=== PATIENT | female | born 1975 | race Two or more races ===

== ENCOUNTER 2022-06-09 08:05 | Emergency (ER) | payer MEDICAID, OTHER ==
[~2022-06-09] VITALS: Ht 167.6 cm; Wt 104.0 kg
[2022-06-09 08:44] VITALS: BP 146/65
[2022-06-09 08:50] LABS: Basophils # (auto) 0 10 ^3/uL (0-0.2); Basophils % (auto) 0.9 % (0.0-2.0); Eosinophils # (auto) 0.1 10 ^3/uL (0-0.8); Eosinophils % (auto) 1.7 % (0.0-7.0); Hematocrit 39.1 % (36.0-46.0); Lymphocytes # (auto) 1.7 10 ^3/uL (0.4-5.4); Lymphocytes % (auto) 34.5 % (10.0-50.0); Mean Corpuscular Hemoglobin 29.1 pg (28.0-32.0); Mean Corpuscular Hgb Conc. 33.3 g/dL (32.0-36.0); Mean Corpuscular Volume 87.3 fL (80.0-100.0); Monocytes # (auto) 0.3 10 ^3/uL (0-1.3); Monocytes % (auto) 5.9 % (0.0-12.0); Neutrophils # (auto) 2.8 10 ^3/uL (1.6-8.6); Nucleated Red Blood Cells % 0.1 %; Red Blood Cells 4.48 10^6/uL (4.0-5.20); Red Cell Distribution Width 13.5 % (11.8-14.3)
[2022-06-09] MEDS ORDERED: MECL25CH38 PO (08:59)
[2022-06-09 09:02] LABS: Albumin 3.8 g/dL (3.4-5.0); Calcium 8.8 mg/dL (8.5-10.1); Potassium 3.6 mmol/L (3.5-5.1)
[2022-06-09 09:05] LABS: BUN/Creatinine Ratio 11.9; Bilirubin, Total 0.7 mg/dL (0.2-1.0); Total Protein 7.1 g/dL (6.4-8.2)
[2022-06-09 10:13] LABS: Urine Amorphous Crystal FEW /hpf (None Seen); Urine Bacteria FEW /hpf (None Seen); Urine Blood Negative /uL (Negative); Urine Specific Gravity 1.008 (1.001-1.035); Urine WBC 6 /hpf (0 - 5)
== END 2022-06-09 12:02 | disposition home or self-care (01) ==
LOC: ER 08:05
DX: R42 Dizziness and giddiness (principal); Z79.899 Other long term (current) drug therapy
CPT/HCPCS: 36415; 70450; 80053; 81001; 84484; 85025; 93005

== ENCOUNTER 2024-07-08 15:42 | Emergency (ER) | payer MEDICAID ==
[~2024-07-08] VITALS: Ht 165.1 cm; Wt 97.1 kg
[~2024-07-08 15:42] MED LIST: MECL25CH38 PO
[2024-07-08 16:16] VITALS: BP 153/94; PULSE 82; RESP 16; TEMP 99.1; O2SAT 97
[2024-07-08] MEDS: methylPREDNISolone SOD SUCC 125 MG/2 ML VL IM ONE (16:32)
[2024-07-08] MEDS: KETOROLAC TROMETH 60MG/2ML VIAL IM ONE (16:32)
[2024-07-08] MEDS ORDERED: AMOX875T3 PO (16:59)
[2024-07-08] MEDS ORDERED: PRED20TA2 PO (16:59)
[2024-07-08] MEDS ORDERED: IBUP-1456 PO (16:59)
== END 2024-07-08 17:02 | disposition home or self-care (01) ==
LOC: ER 15:42
DX: J01.90 Acute sinusitis, unspecified (principal); R51.9 Headache, unspecified; Z79.899 Other long term (current) drug therapy
CPT/HCPCS: 96372; 99284; J1885; J2919

== ENCOUNTER 2025-04-17 09:24 | Emergency (ER) | payer MEDICAID ==
[~2025-04-17] VITALS: Ht 165.1 cm; Wt 91.2 kg
[~2025-04-17 09:24] MED LIST changes: +AMOX875T3 PO; +IBUP-1456 PO; +PRED20TA2 PO
[2025-04-17 09:42] VITALS: BP 120/98; PULSE 98; RESP 16; TEMP 99.2; O2SAT 96
[2025-04-17] MEDS ORDERED: TRAM-626 PO (10:27)
--- NOTE | 2025-04-17 10:29 | ED.PDOC ---
Musculoskeletal HPI Comments A 49-year-old female with a past medical history of anxiety presents to the emergency department with a chief complaint of RT shoulder pain onset 1 month. Patient began experiencing RT shoulder pain 1 month ago, was seen by PCP, had XR, was negative. Patient states pain has not improved, has follow up appointment with PCP in 2 weeks. She has been taking Tylenol and Ibuprofen as needed for pain with mild relief of symptoms, last dose of Ibuprofen 800 mg was this morning. Pain is aggravated with movement, improved with rest. No other symptoms or modifying factors present at this time. Denies fevers chills night sweats nausea vomiting redness around the shoulder Denies previous surgeries to the shoulder or significant injury Numbness/tingling down the arm Denies changes, shortness of breath Chief Complaint: Upper Extremity Time Seen by MD: 10:10 Primary Care Provider: SHEBA [place] Notes: Nurses Notes, Medications, Allergies Allergies: Coded Allergies: NO KNOWN ALLERGIES (Unverified , 06/09/22) Home Meds Active Scripts Tramadol HCl (Tramadol HCl) 50 Mg Tab, 50 MG PO Q8HP PRN for 2 Days, #6 TAB 0 Refills Prov:JOSE L THOMPSON NP 04/17/25 Ibuprofen (Ibuprofen) 800 Mg Tab, 1 TAB PO TID, #30 TAB Prov:OLMAN MONTALVO 07/08/24 Prednisone (Prednisone) 20 Mg Tab, 60 MG PO DAILY, #15 TAB Prov:OLMAN MONTALVO 07/08/24 Amoxicillin Trihydrate (Amoxicillin) 875 Mg Tab, 1 TAB PO BID, #20 TAB Prov:OLMAN MONTALVO 07/08/24 Meclizine HCl (Meclizine) 25 Mg Chw, 25 MG PO DAILY for 7 Days, #7 CHW Prov:ARNAUD CUELLAR MD 06/09/22 Information Source: Patient Mode of Arrival: Ambulatory Location: Right Extremity Location: Shoulder Timing: Months Prehospital treatment: Pain Meds (Ibuprofen 800 mg) Severity: Moderate Able to Move Extremity: Yes Bear Weight: Limited Pain: Moderate Hand Dominance: Right Mechanism: Spontaneous Circumstances: Spontaneous Onset of Symptoms: Spontaneous Symptoms: Pain DVT Risk Factors: NONE Last Tetanus: UTD Associated signs and symptoms: Shoulder pain Past Medical History PAST MEDICAL HISTORY: Anxiety Surgical History: Hysterectomy NUTRITION SERVICES AIDE History: No Pertinent NUTRITION SERVICES AIDE History Family History Family History: Reviewed,noncontributory to illness Social History Smoker: Non-Smoker Alcohol: Denies ETOH Use Drugs: Denies Drug Use Lives In: Home All Other Systems: Reviewed and Negative (as per HPI) Physical Exam General Appearance: No Apparent Distress, Normal HEENT: Normal ENT Inspection, Pharynx Normal, TMs Normal Neck: Full Range of Motion, Non-Tender, Normal, Normal Inspection Respiratory: Chest Non-Tender, Lungs Clear, No Accessory Muscle Use, No Respiratory Distress, Normal Breath Sounds Cardiovascular: No Edema, No JVD, No Murmur, No Gallop, Normal Peripheral Pulses, Regular Rate/Rhythm Breast Exam: Deferred Gastrointestinal: No Organomegaly, Non Tender, No Pulsatile Mass, Normal Bowel Sounds, Soft Genitalia: Deferred Pelvic: Deferred Rectal: Deferred Extremities: No calf tenderness, Normal capillary refill, Normal inspection, Normal range of motion, Non-tender, No pedal edema Musculoskeletal : Location: Right Extremity Location: Shoulder (Right Shoulder: No gross abnormality on inspection. No shoulder drop visible. No clavicular tenderness on palpation. Palpation tenderness to coracoid process and acromion process. No scapular, supraspinatus, infraspinatus tenderness to touch. Limited flexion passive movement due to pain. Pain with abduction. Apley test positive. Sepulveda test positive. Empty can test positive.) Apperance: Normal Neurologic: Alert, physical therapy technician II-XII nml as Tested, No Motor Deficits, Normal Affect, Normal Mood, No Sensory Deficits Cerebellar Function: Normal Reflexes: Normal Skin: Dry, Normal Color, Warm Lymphatic: No Adenopathy Was a procedure done? Was a procedure done?: No Differential Diagnosis EXT Differential Diagnosis: Sprain, Strain, Arthritis, Bursitis X-Ray, Labs, Meds, VS Vital Signs Date Time Temp Pulse Resp B/P (MAP) Pulse Ox O2 Delivery O2 Flow Rate FiO2 04/17/25 09:42 99.2 98 16 120/98 (105) 96 99.2 04/17/25 09:42 98 16 96 Room Air 04/17/25 09:33 99.2 98 16 120/98 (105) 96 99.2 X-Ray, Labs, Meds, VS Comment A 49-year-old female with a past medical history of anxiety presents to the emergency department with a chief complaint of RT shoulder pain onset 1 month. Patient arrives alert and oriented, ABC's intact, afebrile, vital signs stable, saturating well in room air History and examination consistent of muscular injury Suspect muscle sprain/strain Low likelihood of bony or more serious injury, VSS, pt stable Recommended heat therapy Reviewed RICE management Avoid heavy lifting or strenuous activity Recommended range of motion exercises and limit heavy activity for 1 week If no improvement advised patient to return to the emergency department for follow-up. Additional MDM Review of External, Non-ED records: External records reviewed. Discussion with independent historian (EMS, family) history obtained from the patient/parents (if applicable) at bedside Chronic conditions affecting care: Anxiety Social determinants of health affecting care: None Consideration of admission (observation or admission): I considered escalation of care to admission for this patient, however given the reassuring workup, the patient is safe for outpatient management. A considered ordered a CBC however there are no signs of anemia blood loss infection. Considered BNP however there are no signs of electrolyte abnormality renal failure dehydration. Consider Trop however there were no indications of myocardial infarction or silent VT Time of 1ST Reevaluation: 10:40 Reevaluation 1ST: Improved Patient Education/Counseling: Diagnosis, Treatment, Need For Follow Up Family Education/Counseling: No Family Present Departure 1 Departure Time of Disposition: 10:31 Impression: Primary Impression: Rotator cuff injury Qualified Codes: S46.001A - Unspecified injury of muscle(s) and tendon(s) of the rotator cuff of right shoulder, initial encounter Disposition: HOME / SELF CARE / HOMELESS Condition: Stable e-Prescriptions Tramadol HCl (Tramadol HCl) 50 Mg Tab 50 MG PO Q8HP PRN for 2 Days, #6 TAB 0 Refills Prov: JOSE L THOMPSON NP 04/17/25 Discharged With: Self Critical Care Note Critical Care Time?: No Stability Stability form required: No Heart Score Heart Score: Heart Score Response (Comments) Value History N/A 0 EKG N/A 0 Age N/A 0 Risk Factors N/A 0 Troponin N/A 0 Total 0 I personally scribed for JOSE L THOMPSON NP ([email or web address]) on 04/17/25 at 10:29. Electronically submitted by Yessy Shah ([email or web address]). I personally scribed for JOSE L THOMPSON NP ([email or web address]) on 04/17/25 at 10:31. Electronically submitted by Yessy Shah ([email or web address]). JOSE L THOMPSON NP Apr 17, 2025 10:29
== END 2025-04-17 10:36 | disposition home or self-care (01) ==
LOC: ER 09:24
DX: S46.001A Unspecified injury of muscle(s) and tendon(s) of the rotator cuff of right shoulder, initial encounter (principal); F41.9 Anxiety disorder, unspecified; Z90.710 Acquired absence of both cervix and uterus; X58.XXXA Exposure to other specified factors, initial encounter; Y93.89 Activity, other specified; Y92.89 Other specified places as the place of occurrence of the external cause; Y99.8 Other external cause status